=== PATIENT | male | born 2005 | race Caucasian/White ===

== ENCOUNTER 2024-06-11 16:23 | Emergency (ER) | payer OTHER, SELFPAY ==
--- NOTE | ~2024-06-11 | US_ITS ---
EXAMINATION: US scrotum doppler DATE: 06/11/2024 17:07 INDICATION: Testicular pain, hit by hockey puck. TECHNIQUE: Grayscale and Doppler ultrasound images of the testes were obtained. COMPARISON: None. FINDINGS: The right testis measures 5.4 x 3.0 x 3.6 cm. The left testis measures 3.7 x 2.3 x 3.2 cm. Irregular avascular heterogeneously echogenic area in the anterior and superior aspect of the right t esticle measuring approximately 2.4 x 1.3 cm. This area contains a somewhat more circumscribed hetero geneous avascular area measuring up to 1.0 cm. Focal areas of irregularity/crinkling of the anterior tunica albuginea (cine clip of the right testic le transverse, superior to inferior; static image #3, 6, and 7). No definite sonographic evidence of testicular fracture or extravasation. There is normal vascular flow to both testes. The right epididymis is normal with normal vascular bridget w. Tiny simple epididymal cyst on the right. The left epididymis is normal with normal vascular flow. Moderate right hydrocele with mobile debris possible early septal formation. Left varicocele. IMPRESSION: Sonographic findings concerning for disruption of the tunica albuginea. Recommend urology consultatio n. 2.4 cm right anterosuperior intratesticular mass, presumably presenting an intratesticular hematoma g iven the history of trauma. Recommend clinical and sonographic follow-up following resolution of acut e symptoms to exclude a residual mass. Moderate right hematocele. Small left varicocele. Results reported telephonically to Dr. Gonzalez by Dr. Caldwell at 5:47 PM on 06/11/2024. Reviewed, dictated and finalized at location K. R PRESS OPERATOR IMPRESSION: Sonographic findings concerning for disruption of the tunica albuginea. Recomme nd urology consultation. 2.4 cm right anterosuperior intratesticular mass, presumably presenting an intr atesticular hematoma given the history of trauma. Recommend clinical and sonogr aphic follow-up following resolution of acute symptoms to exclude a residual ma ss. Moderate right hematocele. Small left varicocele. Results reported telephonically to Dr. Gonzalez by Dr. Caldwell at 5:47 PM on 06/11/2024.
--- OUTSIDE RECORDS SUMMARY | 2024-06-11 16:25 | XMS_ITS | Clinical Summary ---
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 Gender Identity Not on file Sexual Orientation Not on file Last Filed Vital Signs Vital Sign Reading Time Taken Comments Blood Pressure 129/76 11/28/2011 11:48 AM CDT Pulse 70 11/28/2011 3:56 PM CDT Temperature 36.7 C (98 F) 11/28/2011 3:56 PM CDT Respiratory Rate 20 11/28/2011 3:56 PM CDT Oxygen Saturation 99% 11/28/2011 3:56 PM CDT Inhaled Oxygen Concentration - - Weight 26 kg (57 lb 4 oz) 11/28/2011 9:39 AM CDT Height - - Body Mass Index - - Plan of Treatment Health Maintenance Due Date Last Done Comments CHLAMYDIA SCREENING (ANNUAL) 11-24 YEARS 11/04/2015 HPV VACCINES (1 - Male 3-dos e series) 11/04/2019 DTAP/TDAP/TD VACCINES (1 - Tdap) 11/04/2023 HEPATITIS B VACCINES (1 of 3 - 19+ 3-dose series) 11/04/2023 INFLUENZA VACCINE (#1) 2023 PNEUMOCOCCAL VACCINE 0-64 YEARS Aged Out No longer eligible based on patient's age to complete this topic Insurance [facility] OPEN ACCESS HMO [employer] OPEN ACCESS HMO Care Teams Artificial Breast Fabricator Relationship Specialty Start Date End Date Dee Garcia MD [address] [place] [phone] PCP - General Pediatrics 11/21/11
[2024-06-11 16:26] VITALS: BP 167/98; PULSE 82; RESP 18; TEMP 37.3; O2SAT 100
--- NOTE | 2024-06-11 16:35 | PC.NURSE ---
Patient to US
--- NOTE | 2024-06-11 16:50 | ED_ITS ---
HPI - Male Genitourinary General Chief complaint: Urogenital-Male Stated complaint: testicle pain Time Seen by Provider: 06/11/24 16:33 History of Present Illness HPI Narrative: 18-year-old otherwise healthy male presenting to the emergency room with chief complaint of testicular swelling and mild pain on the right side. [place] of state [place] 1 week prior and was hit in the testicle with a hockey puck at high speed. He went to urgent care then referred to emergency department at that time. Head ultrasound but did not stay for treatment or being seen by provider. His family is present at bedside and provided me the report which notes that he has a complex fluid collection is right testicle but ovarian torsion was ruled out and there is patent blood flow. Patient has not seen a provider or medical attention since this happened and he returned home. For last 6 days he has been having some pain and swelling his right testicle and he came for evaluation today. Denies any hematuria or dysuria. No nausea, vomiting abdominal pain, back pain. Was otherwise in his normal state of health. Related Data Allergies Allergy/AdvReac Type Severity Reaction Status Date / Time No Known Allergies Allergy Verified 06/11/24 16:31 Review of Systems Review of Systems: As reviewed above in HPI Exam Narrative: GENERAL: [Well-appearing, well-nourished, and in no acute distress.] HEAD: [Normocephalic, atraumatic.] EYES: [PERRLA and EOMI.] ENT: Nares clear, no rhinorrhea or epistaxis. Mucous membranes moist. NECK: Supple. CHEST: [Clear to auscultation. No respiratory distress.] HEART: [Regular rate and rhythm]. No murmur heard. [Normal peripheral pulses.] ABDOMEN: [Soft, nondistended], [nontender], [No rigidity or guarding] GENITOURINARY: Right-sided swelling to the scrotum but testicle appears normal size without any epididymal tenderness or palpable masses. Negative presents sign, no inguinal swelling or lymphadenopathy EXTREMITIES: Normal range of motion. [No edema.] SKIN: Warm, dry, no rash. NEURO: [No focal deficits]. Alert and oriented [x3.] PSYCH: [Normal mood and affect.] Course Vital Signs Vital signs: Vital Signs Temperature 37.3 C 06/11/24 16:26 Pulse Rate 82 06/11/24 16:26 Respiratory Rate 18 06/11/24 16:26 Blood Pressure 167/98 H 06/11/24 16:26 Pulse Oximetry 100 06/11/24 16:26 Oxygen Delivery Room Air 06/11/24 16:26 Temperature 37.3 C 06/11/24 16:26 Pulse Rate 82 06/11/24 16:26 Respiratory Rate 18 06/11/24 16:26 Blood Pressure 167/98 H 06/11/24 16:26 Pulse Oximetry 100 06/11/24 16:26 Oxygen Delivery Room Air 06/11/24 16:26 MDM - Male Genitourinary MDM Narrative Medical decision making narrative: 18-year-old otherwise healthy male presenting to the emergency department for subacute injury to his right testicle. Approximately 6 days prior he was playing hockey, got hockey puck struck his right testicle and he went to the emergency department where he had ultrasound but did not see a medical provider. There appears to be a complex fluid collection and hydrocele in his right testicle but patent blood flow and no signs of torsion on the ultrasound report provided to me at bedside. He was otherwise in his normal state of health but having swelling and mild pain. Denies any hematuria or dysuria. Normal vital signs aside from elevated blood pressure likely secondary to a component of pain. Ultrasound and urinalysis obtained at this time. Ultrasound shows concern for disruption of the tunica albuginea as well as a 2.4 cm testicular mass likely an intratesticular hematoma secondary to the trauma. Moderate right hematocele, left small varicocele. Urinalysis without any infection or blood. Spoke to the on-call urologist Dr. Esquivel and we went over the imaging studies together, current recommendations are given the imaging findings and duration of his symptoms with good pain control presently to continue ice and scrotal support and have a repeat ultrasound in 4 weeks to make sure that there is resolution of the hematoma and him at a seal and to follow up with him in 4 weeks but no emergent or urgent indications for any interventions at this time. I went over these recommendations with the family and the patient and they were appreciative and felt comfortable with the plan. Patient will be discharged home with Urology follow-up and the recommendations as we described. Medical Records Attestation: I reviewed the patient's medical records. Lab Data Attestation: I reviewed the patient's lab results. Labs: Lab Results 06/11/24 Range/Units 17:02 Urine Color Yellow (Yellow) Urine Appearance Clear (Clear) Urine pH 6.0 (5.0-9.0) Ur Specific [place] 1.016 (1.001-1.035) Urine Protein Negative (Negative) mg/dL Urine Glucose (UA) Negative (Negative) mg/dL Urine Ketones Negative (Negative) mg/dL Ur Blood (Man) Negative (Negative) Urine Nitrate Negative (Negative) Urine Bilirubin Negative (Negative) Urine Urobilinogen 1.0 (<2.0) mg/dL Leukocyte Esterase Rfl Negative (Negative) JUNAID/UL Imaging Data Attestation: I personally reviewed and interpreted this imaging study as follows: My impression: Impressions Scrotum Ultrasound 06/11/24 17:30 IMPRESSION: Sonographic findings concerning for disruption of the tunica albuginea. Recommend urology consultation. 2.4 cm right anterosuperior intratesticular mass, presumably presenting an intratesticular hematoma given the history of trauma. Recommend clinical and sonographic follow-up following resolution of acute symptoms to exclude a residual mass. Moderate right hematocele. Small left varicocele. Results reported telephonically to Dr. Gonzalez by Dr. Caldwell at 5:47 PM on 06/11/2024. Discharge Plan Discharge Clinical Impression: Traumatic hematoma of testicle, Hematocele Patient Disposition: Home, Self-Care Condition: Stable Instructions: Antibiotic Form, Testicle Pain (ED), Hematoma (ED) Additional Instructions: You have an area of bruising to the right testicle associated with some blood products in the testicular scrotal sac. No indications for any operative interventions, we spoke to urologist who recommended ice and scrotal support with testicular elevation as tolerated. Ibuprofen or other pain control medications as needed. Follow-up in 4 weeks with Urology and obtain a repeat ultrasound to make sure this is resolving on its own. Patient Language: Danish Follow-up/Referrals: Dee Garcia MD [Primary Care Provider] - Marlon Esquivel MD [Physician] - 1 Month (Traumatic tunica albuginea disruption, testicular hematoma) Time of Disposition: 18:18
--- OUTSIDE RECORDS SUMMARY | 2024-06-11 16:51 | XMS_ITS | Clinical Summary ---
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
[2024-06-11 17:07] LABS: Add Urine Microscopic? NO; Appearance Urine Clear (Clear); Bilirubin Urine Negative (Negative); Blood Urine Negative (Negative); Color Urine Yellow (Yellow); Glucose Urine UA Negative (Negative); Ketones Urine Negative (Negative); Leukocyte Esterase Ur Negative LEU/UL (Negative); Nitrate Urine Negative (Negative); Protein Urine Negative (Negative); Specific Grav Ur 1.016 (1.001-1.035)
[2024-06-11 18:22] VITALS: BP 147/86; PULSE 60; RESP 18; O2SAT 95
== END 2024-06-11 18:29 | disposition home or self-care (01) ==
PROVIDERS: Emergency Provider Student in an Organized Health Care Education/Training Program; PCP Pediatrics
DX: S30.22XA Contusion of scrotum and testes, initial encounter (principal); N50.1 Vascular disorders of male genital organs; W21.220A Struck by ice hockey puck, initial encounter; Y93.22 Activity, ice hockey
CPT/HCPCS: 76870; 81003; 93976; 99284

== ENCOUNTER 2024-10-03 12:12 | Outpatient (CLI) | payer OTHER, SELFPAY ==
--- OUTSIDE RECORDS SUMMARY | 2024-10-03 12:17 | XMS_ITS | Clinical Summary ---
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 OPEN ACCESS HMO [employer] OPEN ACCESS HMO Care Teams Roaster Supervisor Relationship Specialty Start Date End Date Dee Garcia MD [address] [place] [phone] PCP - General Pediatrics 11/21/11
--- NOTE | 2024-10-03 12:39 | ECG_ITS ---
Test Date: 2024-10-03 12:47:51 Measurements Intervals [place] Rate: 84 P: 72 AK: 158 QRS: 54 QRSD: 91 T: 42 QT: 346 QTc: 410 Interpretive Statements SINUS RHYTHM WITH MARKED SINUS ARRHYTHMIA MINIMAL Q WAVES- DIFFUSE LEADS BASELINE ARTIFACT- I, III, AVR, AVL, AVF BORDERLINE ECG No previous ECG available for comparison Electronically Signed On 10-03-2024 15:45:42 CDT by Logan Lopez D.O.
== END 2024-10-03 12:13 | disposition home or self-care (01) ==
LOC: ANHCARD 12:15
PROVIDERS: PCP Pediatrics; Visit Provider Pediatrics
DX: F41.0 Panic disorder [episodic paroxysmal anxiety] (principal); R94.31 Abnormal electrocardiogram [ECG] [EKG]
CPT/HCPCS: 93005